=== PATIENT | female | born 1990 | race Two or more races ===

== ENCOUNTER 2017-04-06 10:34 | Day surgery (SDC) | payer OTHER ==
[2017-03-25 19:10] VITALS: BMI 24.1
--- NOTE | 2017-03-29 10:10 | HP ---
Admitting History and Physical - Primary Care Physician PCP: Casey Brown - Admission Chief Complaint: Right breast fibroadenoma History of Present Illness: 26 year old premenapausal female with family H/O breast cancer is noted to have right breast mass at 2:00, 1.7 cm nodule 3 cm FN. Right breast US core biopsy showed fibroadenoma recent US showed right breast mass to enlarge to 2.1 cm. History Source: Patient Limitations to Obtaining History: No Limitations - Past Medical History PEPPER PICKER: Yes: Migraine Cardiovascular: Yes: Aneurysm (cerebral aneurysm <3mm monitored Q6 mos.) ...LMP: 03/17/17 Psych: Yes: Anxiety, Depression, Other (insomnia) - Smoking History Smoking history: Former smoker Have you smoked in the past 12 months: Yes Aproximately how many cigarettes per day: 5 If you are a former smoker, when did you quit?: 09/2016 - Alcohol/Substance Use Hx Alcohol Use: Yes (SOCIAL) Home Medications - Allergies Allergies/Adverse Reactions: Allergies Allergy/AdvReac Type Severity Reaction Status Date / Time No Known Allergies Allergy Verified 03/25/17 18:59 - Home Medications Home Medications: Ambulatory Orders Amoxicillin - [Amoxicillin 500mg Capsule -] 500 mg PO TID 03/25/17 Duloxetine HCl [Cymbalta] 60 mg PO DAILY 03/25/17 Lorazepam 1 mg PO HS 03/25/17 Omeprazole 40 mg PO PRN PRN 03/25/17 Family Disease History - Family Disease History Other Family History: mat aunt breast ca 37 Physical Examination Constitutional: Yes: Well Nourished Breast(s): Yes: Other (Right breast palpable mass aprox 2 cm at 2:00 3 cm FN) Problem List - Problems (1) Fibroadenoma of right breast Code(s): D24.1 - BENIGN NEOPLASM OF RIGHT BREAST Assessment/Plan Right breast biopsy
[2017-04-06] MEDS ORDERED: PROPOFOL 20 ML ONE (10:38)
[2017-04-06] MEDS ORDERED: MIDAZOLAM HCL 2 MG/2 ML SINGLE DOSE VIAL ONE (10:38)
[2017-04-06] MEDS ORDERED: LIDOCAINE HCL 1%, 10 MG/ML (20ML VIAL) ONE (11:14)
[2017-04-06] MEDS ORDERED: DESFLURANE GAS 240 ML BOTTLE IH ONE (11:14)
[2017-04-06] MEDS ORDERED: BUPIVACAINE HCL/PF 2.5 MG/ML - 30 ML VIAL IJ ONE (11:17)
[2017-04-06] MEDS ORDERED: ONDANSETRON 4 MG/2 ML VIAL ONE (11:27)
[2017-04-06] MEDS ORDERED: DEXAMETHASONE SOD PHOSPHATE 4 MG/1 ML VIAL ONE (11:27)
[2017-04-06] MEDS ORDERED: ONDANSETRON 4 MG/2 ML VIAL IVPUSH PRN ×2 (11:46→12:07)
[2017-04-06] MEDS ORDERED: oxyCODONE HCL 5 MG TABLET PO PRN (11:46)
[2017-04-06] MEDS ORDERED: LACTATED RINGERS SOLUTION 1,000 ML IV SCH (12:00)
[2017-04-06] MEDS ORDERED: KETOROLAC TROMETHAMINE 30 MG/1 ML VIAL IVPUSH PRN (12:07)
[2017-04-06] MEDS ORDERED: DEXTROSE 5%-0.45% SALINE 1,000 ML IV SCH (12:15)
[2017-04-06 13:02] VITALS: TEMP 98.2
[2017-04-06] MEDS ORDERED: oxyCODONE HCL 5 MG TABLET ONE (13:32)
--- NOTE | 2017-04-06 14:21 | OP ---
DATE OF OPERATION: 04/06/2017 PREOPERATIVE DIAGNOSIS: Right breast mass. POSTOPERATIVE DIAGNOSIS: Right breast mass. PROCEDURE: Right breast incisional biopsy. ANESTHESIA: Local. ATTENDING SURGEON: Radha Brown MD [employer] OPERATOR FOR METAL: ZOE Santana ESTIMATED BLOOD LOSS: Minimal. COMPLICATIONS: None. DESCRIPTION OF PROCEDURE: Patient was made aware of the risks and benefits of the procedure and consented. She was placed in supine position. After general anesthesia was induced, the patient was intubated. The operative site was prepped and draped in usual sterile fashion. Next, 1% lidocaine mixed with a 1:1 ratio of 0.25% ropivacaine was used for local pre-emptive anesthesia. A para-areolar incision was then made using electrocautery. A thick skin flap was made to the mass. This was sharply excised and submitted to Pathology. The wound was copiously irrigated with normal saline. Hemostasis maintained by electrocautery. Palpation of the wound revealed no other suspicious nodules. The wound was then closed with a deep 3-0 Vicryl, followed by a running subcuticular 4-0 Monocryl. Dermabond as well as a compression bra were then applied, and the patient, having tolerated the procedure well, was transferred to the recovery room in excellent condition. RADHA BROWN M.D. [id number]
[2017-04-06 15:00] VITALS: BP 114/62; PULSE 82
--- NOTE | 2017-04-09 15:26 | PATH ---
Surgical Pathology Report Patient Name: CARITO BRITO [facility]. Rec. #: [id number] /Age/Gender: 1990 (Age: 27) / F Account: [id number] Location: [facility] Taken: 04/06/2017 Received: 04/06/2017 Reported: 04/09/2017 Physicians: Casey Brwon M.D. Specimen(s) Received RIGHT BREAST MASS Clinical History Palpable mass Ultrasound findings: Probably benign Final Diagnosis BREAST, RIGHT, MASS, EXCISION: BENIGN BREAST TISSUE SHOWING FIBROADENOMA. Electronically Signed Joellen Maki M.D. Gross Description Received in formalin labeled "right breast mass," is a 2.7 x 2.6 x 2.1 cm unoriented, rubbery mass. There is no needle localization wire present. There is no skin present. The specimen is inked blue and serially sectioned. Sectioning reveals homogeneous pina, rubbery parenchyma. No areas of hemorrhage or necrosis are identified. The specimen is entirely and sequentially submitted in 5 cassettes. Time to formalin fixation: < 1 minute Total formalin fixation time: Approximately 35 hours. 04/07/2017 [facility]04/07/2017
== END 2017-04-06 14:30 | disposition home or self-care (01) ==
LOC: FASU 10:34
PROVIDERS: ATTEND Surgery Surgical Oncology
PROC: 0HBT0ZX Excision of Right Breast, Open Approach, Diagnostic (ICD-10-PCS; principal; 2017-04-06 11:23)
DX: D24.1 Benign neoplasm of right breast (principal); Z85.3 Personal history of malignant neoplasm of breast; Z86.79 Personal history of other diseases of the circulatory system; Z87.891 Personal history of nicotine dependence; F41.9 Anxiety disorder, unspecified; F32.9 Major depressive disorder, single episode, unspecified; G47.00 Insomnia, unspecified
CPT/HCPCS: 84703